=== PATIENT | male | born 1975 | race Caucasian/White ===

== ENCOUNTER 2021-12-06 15:31 | Emergency (ER) | payer OTHER ==
[~2021-12-06] VITALS: Ht 180.3 cm; Wt 101.2 kg
--- NOTE | 2021-12-06 16:15 | NUR ---
Patient to [facility] chair [facility] for evaluation. Report received from May.
[2021-12-06 16:22] VITALS: BP_SYST 159
--- NOTE | 2021-12-06 16:33 | NUR ---
Assumed care of patient who was brought in by the [facility] for medical clearance and MAURICE. Patient appears in no signs acute distress. He is sitting on chair with deputies on either side.
--- NOTE | 2021-12-06 17:47 | NUR ---
Written and verbal consent obtained from patient for blood alcohol, name and verified by patient. Disinfected patient's skin with IODINE that did not contain alcohol or other volatile organic compound. Collected the blood from the subject named by venipuncture, in the presence of Officer FINN # [id number] a sterile, dry hypodermic needle and dry vacuum blood collection. Two dry vacuum blood collection was supplied by the officer named above. Withdrew a specimen of blood from RIGHT FOREARM of the subject named above. Inverted both blood tubes several times. I initialed both blood tube labels for identification. The labeled blood tubes were handed directly to the Officer named above. The blood tubes stopper remained in place while I had possession of the blood tubes. The Officer placed tubes into envelope and sealed it in my presence. Envelope initialed by myself and Officer named above. Patient tolerated well, bandage applied, and bleeding controlled.
[2021-12-06 17:50] VITALS: BP_SYST 132
--- NOTE | 2021-12-06 17:50 | NUR ---
Patient [facility] given written and verbal discharge instructions and verbalizes understanding. ER MD discussed with patient the results and treatment provided. Patient in stable condition. ID arm band removed. Patient educated on pain management and to follow up with PMD. Pain Scale 0/10 Opportunity for questions provided and answered. PATIENT LEFT IN CUSTODY WITH [facility]PART[facility] WITH STE[facility] GAIT
== END 2021-12-06 17:50 | disposition home or self-care (01) ==
LOC: SED 15:31
DX: Z02.89 Encounter for other administrative examinations (principal)
CPT/HCPCS: 99283